=== PATIENT | male | born 1975 | race Caucasian/White ===

== ENCOUNTER 2016-12-25 04:50 | Emergency (ER) | payer OTHER ==
[~2016-12-25] VITALS: Ht 175.3 cm; Wt 112.5 kg
[~2016-12-25 04:50] MED LIST: ASPI81TA3 PO; ATOR40TA68 PO; LEVO750T8 PO; METO-448 PO
[2016-12-25 04:59] VITALS: Ht 175.3 cm; Wt 112.5 kg
[2016-12-25 06:05] LABS: ADD SCAN DIFF NO; BASOPHILS % 0.3 % (0.0-2.0); EOSINOPHILS # 0.1 10^3/ul (0.0-0.5); EOSINOPHILS % 1.2 % (0.0-7.0); HEMATOCRIT 45.1 % (42.0-52.0); HEMOGLOBIN 16.2 g/dl (14.0-18.0); LYMPHOCYTES # 1.9 10^3/ul (0.8-2.9); LYMPHOCYTES % 21.6 % (15.0-51.0); MEAN CORPUSCULAR HEMOGLOBIN 31.5 pg (29.0-33.0); MEAN CORPUSCULAR HGB CONC 35.9 g/dl (32.0-37.0); MEAN CORPUSCULAR VOLUME 87.6 fl (82.0-101.0); MEAN PLATELET VOLUME 11.4 fl (7.4-10.4); MONOCYTE # 0.6 10^3/ul (0.3-0.9); MONOCYTES % 6.1 % (0.0-11.0); NEUTROPHIL # 6.3 10^3/ul (1.6-7.5); NEUTROPHILS % 70.2 % (39.0-77.0); PLATELET COUNT 176 10^3/UL (140-415); RED BLOOD COUNT 5.15 10^6/ul (4.70-6.10); RED CELL DISTRIBUTION WIDTH 12.7 % (11.5-14.5)
[2016-12-25 06:18] LABS: ALBUMIN 4.1 g/dl (3.3-4.9); CHLORIDE 106 mmol/L (97-110)
[2016-12-25 06:19] LABS: SODIUM 144 mmol/L (135-144)
[2016-12-25 06:21] LABS: ALBUMIN/GLOBULIN RATIO 1.36; ALKALINE PHOSPHATASE 93 IU/L (42-121); ANION GAP 16 (8-16); ASPARTATE AMINO TRANSFERASE 42 IU/L (15-46); BILIRUBIN,INDIRECT 0.2 mg/dl (0-1.1); BILIRUBIN,TOTAL 0.2 mg/dl (0.2-1.3); CARBON DIOXIDE 26 mmol/L (21-31); TOTAL PROTEIN 7.1 g/dl (6.1-8.1)
[2016-12-25 06:22] LABS: ALANINE AMINOTRANSFERASE 86 IU/L (13-69); BLOOD UREA NITROGEN 19 mg/dl (7-20); CALCIUM 9.3 mg/dl (8.4-10.2); GLUCOSE 99 mg/dl (70-220)
[2016-12-25 06:24] LABS: INR 0.87; PROTIME 11.8 Sec (12.2-14.2); PT RATIO 0.9
[2016-12-25 06:25] LABS: PARTIAL THROMBOPLASTIN TIME 32.3 Sec (25.0-35.0)
[2016-12-25] MEDS ORDERED: LIDOCAINE/MYLANTA 40 ML BTL PO STA (06:38)
[2016-12-25] MEDS ORDERED: SOD CHLORIDE 0.9% 1,000 ML IV STA (06:38)
[2016-12-25] MEDS ORDERED: BELLADONNA/PHENOBARBITAL TAB PO STA (06:38)
[2016-12-25] MEDS ORDERED: ONDANSETRON 4 MG INJ IV STA (06:38)
[2016-12-25 06:55] LABS: TROPONIN-I < 0.012 ng/ml (0.00-0.12)
[2016-12-25] MEDS ORDERED: ALPRAZOLAM 0.25 MG TAB PO ONE (07:00)
[2016-12-25 07:01] LABS: CREATININE 0.87 mg/dl (0.61-1.24); POTASSIUM 3.8 mmol/L (3.5-5.1)
--- NOTE | 2016-12-25 07:05 | RADRPT ---
PROCEDURE: CHEST - 1 VIEW CLINICAL INDICATION: 41-year-old male with chest pain. TECHNIQUE: A single frontal AP semi-erect view of the chest was performed portably. The images we re reviewed on a PACS workstation. COMPARISON: Chest x-ray October 03, 2016; CTA chest October 03, 2016. FINDINGS: The cardiomediastinal silhouette is prominent but within normal limits. There is a shallow inspirat ion. There is no evidence for an infiltrate. There is no evidence for congestive heart failure. Th ere is no evidence for pneumothorax. The osseous structures are intact. IMPRESSION: No evidence for active cardiopulmonary disease. .Jeffry Coley MD, MD Date Time Electronically viewed and signed by .Jeffry Coley MD, on 12/25/2016 07:05 .Evie/
[2016-12-25 08:06] VITALS: BP 118/60; PULSE 60; RESP 20
--- NOTE | 2016-12-25 08:49 | ERD ---
ER Documentation Chief Complaint Date/Time DATE: 12/25/16 TIME: 08:45 Chief Complaint chest pain x 1 hour HPI 41-year-old man presents with sharp nonexertional nonradiating chest pain, palpitations, pressure in his head, and full body diaphoresis with paresthesias to the extremities lasting for about 2 hours. He took 1 dose of metoprolol to help with his symptoms and when they did not resolve he came here for evaluation. Patient has had similar episodes in the past although less intense. Patient denies suicidal homicidal ideation, no fevers or chills, no pressure-like chest pain, no shortness of breath, no loss of consciousness, no calf or leg swelling, no vomiting or diarrhea. ROS All systems reviewed and are negative except as per history of present illness. Medications Home Meds Active Scripts Metoprolol Tartrate* (Lopressor*) 25 Mg Tab, 25 MG PO BID for 30 Days, TAB 3 Refills Prov:ASHLYN,NMolinaMAURISIOMARINA 10/05/16 Levofloxacin* (Levofloxacin*) 750 Mg Tablet, 750 MG PO DAILY for 5 Days, TAB Prov:ASHLYN,NMolinaMAURISIOMARINA 10/05/16 Atorvastatin* (Atorvastatin*) 40 Mg Tablet, 40 MG PO HS for 30 Days, TAB 3 Refills Prov:ASHLYNJohnyMolinaMAURISIOMARINA 10/05/16 Aspirin (Aspirin) 81 Mg Chew, 81 MG PO DAILY for 30 Days, TAB 3 Refills Prov:DUNCAN GOLDBERG 10/05/16 Allergies Allergies: Coded Allergies: No Known Allergies (Verified Allergy, Mild, 12/25/16) PMhx/Soc Hypertension, dyslipidemia History of Surgery: No Anesthesia Reaction: No Hx Neurological Disorder: No Hx Respiratory Disorders: No Hx Cardiac Disorders: No Hx Psychiatric Problems: No Hx Miscellaneous Medical Probl: Yes (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, PNA) Hx Alcohol Use: Yes (OCCASIONALLY) Hx Substance Use: No Hx Tobacco Use: Yes Smoking Status: Current every day smoker FmHx Family History: No diabetes Physical Exam Vitals Vital Signs Date Time Temp Pulse Resp B/P Pulse Ox O2 Delivery O2 Flow Rate FiO2 12/25/16 08:06 60 20 118/60 99 Room Air 12/25/16 06:30 56 20 121/58 99 Room Air 12/25/16 04:59 97.6 63 20 129/81 98 Physical Exam GENERAL: Well-developed, well-nourished, anxious HEENT: Moist mucous membranes, pink conjunctiva, no cervical spine tenderness or step-off deformities, no goiter, no jaundice or icterus, extraocular movements intact without pain. No submandibular induration, and no pharyngeal erythema NEURO: Alert and oriented 3, cranial nerves II through XII intact bilaterally, pupils equal round reactive to light, no focal deficits or facial asymmetry, sensation intact distally Strength 5/5 in upper and lower extremities bilaterally CARDIAC: Regular rate and rhythm, no murmurs rubs or gallops LUNGS: Clear bilaterally no wheezing crackles or stridor ABDOMEN: Soft nontender, no guarding, no rigidity, no rebound, no psoas sign no obturator sign. Normoactive bowel sounds SKIN: Warm and dry to touch, no abrasions, contusions, or hematomas, no lacerations, no ecchymosis, no target lesions, and without ulcers EXTREMITIES: No clubbing cyanosis or edema, calves are bilaterally symmetrical, no Homans sign, no popliteal cord sign. Distal pulses equal and bilateral PSYCH: Anxious Result Diagram: 12/25/16 0550 12/25/16 0550 Results 24 hrs Laboratory Tests Test 12/25/16 05:50 Activated Partial Thromboplast Time 32.3Sec Alanine Aminotransferase (ALT/SGPT) 86IU/L Albumin 4.1g/dl Albumin/Globulin Ratio 1.36 Alkaline Phosphatase 93IU/L Anion Gap 16 Aspartate Amino Transf (AST/SGOT) 42IU/L Basophils # 0.010^3/ul Basophils % 0.3% Blood Urea Nitrogen 19mg/dl Calcium Level 9.3mg/dl Carbon Dioxide Level 26mmol/L Chloride Level 106mmol/L Creatinine 0.87mg/dl Direct Bilirubin 0.00mg/dl Eosinophils # 0.110^3/ul Eosinophils % 1.2% Globulin 3.00g/dl Glucose Level 99mg/dl Hematocrit 45.1% Hemoglobin 16.2g/dl INR International Normalized Ratio 0.87 Indirect Bilirubin 0.2mg/dl Lymphocytes # 1.910^3/ul Lymphocytes % 21.6% Mean Corpuscular Hemoglobin 31.5pg Mean Corpuscular Hemoglobin Concent 35.9g/dl Mean Corpuscular Volume 87.6fl Mean Platelet Volume 11.4fl Monocytes # 0.610^3/ul Monocytes % 6.1% Neutrophils # 6.310^3/ul Neutrophils % 70.2% Nucleated Red Blood Cells # 0.010^3/ul Nucleated Red Blood Cells % 0.0/100WBC Platelet Count 72832^3/UL Potassium Level 3.8mmol/L Prothrombin Time 11.8Sec Prothrombin Time Ratio 0.9 Red Blood Count 5.1510^6/ul Red Cell Distribution Width 12.7% Sodium Level 144mmol/L Total Bilirubin 0.2mg/dl Total Protein 7.1g/dl Troponin I < 0.012ng/ml White Blood Count 9.010^3/ul Current Medications Medications (Trade) Dose Ordered Sig/Sawyer Route PRN Reason Start Time Stop Time Status Last Admin Dose Admin Sodium Chloride (NS) 1,000 ml @ 1,000 mls/hr Q1H STAT IV 12/25/16 06:38 12/25/16 07:37 DC 12/25/16 06:51 Ondansetron HCl (Zofran Inj) 4 mg ONCE STAT IV 12/25/16 06:38 12/25/16 06:44 DC 12/25/16 06:51 Miscellaneous Medication (Gi Cocktail (2)) 40 ml ONCE STAT PO 12/25/16 06:38 12/25/16 06:44 DC 12/25/16 06:52 Belladonna/ Phenobarbital () 2 tab ONCE STAT PO 12/25/16 06:38 12/25/16 06:44 DC 12/25/16 06:51 Alprazolam (Xanax) 0.25 mg ONCE ONCE PO 12/25/16 07:00 12/25/16 07:01 DC 12/25/16 06:51 Procedures/MDM IV line was established patient was placed on director of cardiac rehabilitation rhythm strip revealed a sinus rhythm at about 60 bpm with upright P and T waves. Patient was afebrile. EKG performed, read by me: 65 bpm, normal sinus rhythm, normal axis, no acute ST segment changes, narrow QRS complex, with good R-wave progression in precordial leads. One AP view of the chest performed, read by me reveals no acute infiltrates, normal mediastinum, sharp costophrenic and cardiac borders, no air under the diaphragm. Otherwise unremarkable chest x-ray. I administered 1 L normal saline intravenously, Zofran 4 mg IV, GI cocktail 50 cc p.o., and alprazolam 0.25 mg p.o. with good effect. CBC and electrolytes were normal, liver function tests were normal, troponin was negative. Patient states a few months ago he was diagnosed with pneumonia and took multiple oral antibiotics for a couple of weeks and since then has been constipated. His abdominal exam was repeated by me and remained benign and his anxiety improved. Patient can be managed as an outpatient although I did recommend probiotic therapy given his recent GI issues. Differential diagnoses considered, included but not limited to acute coronary syndrome, pulmonary embolism, aortic dissection, abdominal aortic aneurysm, sepsis, stroke, meningitis, encephalitis, pneumonia, appendicitis, cholecystitis , bowel obstruction, pyelonephritis, nephrolithiasis, cystitis, as well as metabolic, hematologic, and electrolyte abnormalities. As well as abscess, cellulitis, fractures, and dislocations. Patient feels much better at this time, and vital signs are normal, symptoms have improved. I did give strict instructions to return to the ED if symptoms continue or worsen, patient will otherwise follow-up with primary care physician. Patient understood instructions and agreed to plan. Departure Diagnosis: Primary Impression: Dizziness Additional Impressions: Anxiety Constipation Constipation type: slow transit constipation Qualified Code: K59.01 - Slow transit constipation Condition: Good Patient Instructions: Anxiety Reaction, Constipation (Adult), Dizziness, Unk Cause, Hypertension, Established Referrals: KRISTAL HURLEY (PCP) VARSHA PERALTA MD Dec 25, 2016 08:49
== END 2016-12-25 08:08 | disposition home or self-care (01) ==
LOC: E/R 04:50
DX: R42 Dizziness and giddiness (principal); F41.9 Anxiety disorder, unspecified; K59.01 Slow transit constipation; I10 Essential (primary) hypertension; F17.210 Nicotine dependence, cigarettes, uncomplicated; Z79.82 Long term (current) use of aspirin
CPT/HCPCS: 36415; 71010; 80053; 84484; 85025; 85610; 85730; 96374; J2405; J7030; Z7502; Z7610

== ENCOUNTER 2018-01-22 09:57 | Observation (INO) | END 2018-01-22 22:39 | disposition home or self-care (01) ==